=== PATIENT | male | born 1940 | race Caucasian/White ===

== ENCOUNTER 2018-03-20 12:50 | Inpatient (IN) ==
[2018-03-20] MEDS ORDERED: Acetaminophen 325 MG Tablet PO ONE (14:06)
--- NOTE | 2018-03-20 14:24 | ED ---
HPI General Chief complaint: Abdominal Pain Stated complaint: Chills/Left flank pain/Nausea Time Seen by Provider: 03/20/18 14:00 Source: patient Mode of arrival: ambulatory Limitations: no limitations History of Present Illness HPI narrative: 77yo M with PMH of HTN, DM, GERD presents to the ED with c/o chills, nausea, vomiting and left sided flank pain today. Denies any chest pain , sob, urinary complaints, diarrhea, focal weakness or numbness. Related Data Home Medications Medication Instructions Recorded Confirmed aspirin 81 mg PO DAILY 03/20/18 03/20/18 esomeprazole magnesium [Nexium] 40 mg PO DAILY 03/20/18 03/20/18 fluticasone-salmeterol [Advair 1 mcg INHALATION BID 03/20/18 03/20/18 Diskus] metformin 500 mg PO BID 03/20/18 03/20/18 montelukast 10 mg PO QPM 03/20/18 03/20/18 omega 1-gkn-zpa-fish oil [Fish Oil] 03/20/18 pantoprazole 40 mg PO DAILY 03/20/18 03/20/18 telmisartan 03/20/18 Previous Rx's Medication Instructions Recorded moxifloxacin 400 mg PO Q24H #5 tab 03/21/18 prednisone 20 mg PO BID #10 tab 03/21/18 Allergies Allergy/AdvReac Type Severity Reaction Status Date / Time Fish Containing Products Allergy Intermediate Hives Verified 03/20/18 13:18 metoclopramide Allergy Intermediate MADE PT Verified 03/20/18 13:18 NERVOUS ibuprofen Allergy Mild Nausea/Vomi Verified 03/20/18 13:18 ting Review of Systems ROS: all other systems reviewed are negative [facility] Social History Social History Substance History: No History of Abuse Second Hand Smoke Exposure: No Smoking Status: Never smoker How Often Do You Have a Drink Containing Alcohol: Never Recent Travel in [place] within the Last 8 Weeks: No Recent Out of Country Travel within the Last 8 Weeks: No Immunization History Tetanus Immunization: <5 Years Tetanus Immunization Year if Known: 2018 Exam Narrative Exam Narrative: GENERAL: 77yo M in mild distress. SKIN: Focused skin assessment warm/dry. HEAD: Atraumatic. Normocephalic. EYES: Pupils equal and round. No scleral icterus. No injection or drainage. ENT: No nasal bleeding or discharge. Mucous membranes pink and moist. NECK: Trachea midline. No JVD. CARDIOVASCULAR: Regular rate and rhythm. No murmur appreciated. RESPIRATORY: + accessory muscle use. O2 sat mid 80s. GASTROINTESTINAL: Abdomen soft, non-tender, nondistended. No rebound tenderness or guarding. MUSCULOSKELETAL: No obvious deformities. No clubbing. No cyanosis. No edema. NEUROLOGICAL: Awake and alert. No obvious cranial nerve deficits. Motor grossly within normal limits. Normal speech. PSYCHIATRIC: Appropriate mood and affect; insight and judgment normal. Course Initial Documented Vital Signs Temperature 102.3 F H 03/20/18 13:13 Pulse Rate 80 03/20/18 13:13 Respiratory Rate 16 03/20/18 13:13 Blood Pressure 146/75 H 03/20/18 13:13 Pulse Oximetry 99 03/20/18 13:13 Last Documented Vital Signs Temperature 97.2 F L 03/21/18 12:00 Pulse Rate 58 L 03/21/18 12:00 Respiratory Rate 19 03/21/18 12:00 Blood Pressure 108/64 03/21/18 12:00 Pulse Oximetry 93 L 03/21/18 12:00 Critical Care Time Critical Care Time: Yes Total Critical Care Time: 40 Attestation: Aggregate critical care time was 40 minutes. Time to perform other separately billable procedures was not included in the critical care time. My time did not include minutes spent treating any other patients simultaneously or on activities that did not directly contribute to the patient's treatment. The services I provided to this patient were to treat and/or prevent clinically significant deterioration that could result in: cardiovascular collapse or . I provided critical care services requiring my management, as noted below: Chart data review, documentation time, medication orders and management, vital sign assessments/reviewing monitor data, ordering and reviewing lab tests, ordering and interpreting/reviewing x-rays and diagnostic studies, care of the patient and discussion of the patient with the admitting physicians. Medical Decision Making MDM Narrative Medical decision making narrative: 77yo M with c/o chills, left side pain, nausea, and vomiting. Pt found to be febrile at 102.3F. Given acetaminophen. Abdominal exam is unremarkable but pt said it is intermittent. Labs reviewed, mild leukocytosis at 12.1. H/H normal. Lactic acid elevated at 2.5. BUN/ creatinine elevated at 24/1.50. No prior to compare to. UA showed large blood. RBC 51-189. CXR showed left basilar lung consolidation. Probable small left effusion. CT a/p showed focal consolidation left lung base. Multiple small nonobstructing right renal calculi. No obstructive urtopathy or hydronephrosis. Pt said he has GERD and was vomiting, so may have aspirated. Pt empirically given antibiotics. Discussed with Dr. Tripp and accepted to his service. Medical Screen Exam Complete: Yes Emergency Medical Condition: Yes Differential Diagnosis Differential Diagnosis: Sepsis secondary to abdominal source vs. UTI vs. pneumonia Lab Data Result diagrams: 03/20/18 14:20 03/20/18 14:20 Lab Results 03/20/18 03/20/18 03/20/18 Range/Units 14:20 14:20 14:20 CBC w Diff Auto diff final WBC 12.1 H (4.0-11.0) th/mm3 RBC 4.69 (4.50-5.90) mil/mm3 Hgb 14.0 (13.0-17.0) gm/dL Hct 42.9 (39.0-51.0) % MCV 91.5 (80.0-100.0) fL MCH 29.9 (27.0-34.0) pg MCHC 32.7 (32.0-36.0) % RDW 13.6 (11.6-17.2) % Plt Count 235 (150-450) th/mm3 MPV 7.4 (7.0-11.0) fL Neut % (Auto) 88.5 H (16.0-70.0) % Lymph % (Auto) 5.5 L (9.0-44.0) % [place] % (Auto) 5.3 (0.0-8.0) % Eos % (Auto) 0.5 (0.0-4.0) % Baso % (Auto) 0.2 (0.0-2.0) % Neut # (Auto) 10.7 H (1.8-7.7) th/mm3 Lymph # (Auto) 0.7 L (1.0-4.8) th/mm3 [place] # (Auto) 0.6 (0.0-0.9) th/mm3 Eos # (Auto) 0.1 (0.0-0.4) th/mm3 Baso # (Auto) 0.0 (0.0-0.2) th/mm3 WBC Differential . Differential Comment . PT 9.7 L (9.8-11.6) sec INR 1.0 Ratio APTT 28.5 (23.4-31.7) sec Sodium 141 (136-145) meq/L Potassium 4.4 (3.5-5.1) meq/L Chloride 106 (98-107) meq/L Carbon Dioxide 26.5 (21.0-32.0) meq/L Anion Gap 9 (5-15) meq/L BUN 24 H (7-18) mg/dL Creatinine 1.50 H (0.60-1.30) mg/dL Estimated GFR 46 L (>89) mL/min POC Glucose (68-110) mg/dl Random Glucose 144 H (74-106) mg/dL Lactic Acid (0.4-2.0) mmol/L Calcium 9.2 (8.5-10.1) mg/dL Urine Color (Yellw/Straw) Urine Clarity (Clear) Urine pH (5.0-8.5) Ur Specific [place] (1.002-1.035) Urine Protein (Neg-Trace) mg/dL Urine Glucose (UA) (Negative) mg/dL Urine Ketones (Negative) mg/dL Urine Occult Blood (Negative) Urine Nitrate (Negative) Urine Bilirubin (Negative) Urine Urobilinogen (Less than 2) mg/dL Ur Leukocyte Esterase (Negative) Urine RBC (0-3) /hpf Urine WBC (0-5) /hpf Micro UA Comment Ur Microscopic Review Urine Culture Comments 03/20/18 03/20/18 03/20/18 Range/Units 14:20 14:25 17:53 CBC w Diff WBC (4.0-11.0) th/mm3 RBC (4.50-5.90) mil/mm3 Hgb (13.0-17.0) gm/dL Hct (39.0-51.0) % MCV (80.0-100.0) fL MCH (27.0-34.0) pg MCHC (32.0-36.0) % RDW (11.6-17.2) % Plt Count (150-450) th/mm3 MPV (7.0-11.0) fL Neut % (Auto) (16.0-70.0) % Lymph % (Auto) (9.0-44.0) % [place] % (Auto) (0.0-8.0) % Eos % (Auto) (0.0-4.0) % Baso % (Auto) (0.0-2.0) % Neut # (Auto) (1.8-7.7) th/mm3 Lymph # (Auto) (1.0-4.8) th/mm3 [place] # (Auto) (0.0-0.9) th/mm3 Eos # (Auto) (0.0-0.4) th/mm3 Baso # (Auto) (0.0-0.2) th/mm3 WBC Differential Differential Comment PT (9.8-11.6) sec INR Ratio APTT (23.4-31.7) sec Sodium (136-145) meq/L Potassium (3.5-5.1) meq/L Chloride (98-107) meq/L Carbon Dioxide (21.0-32.0) meq/L Anion Gap (5-15) meq/L BUN (7-18) mg/dL Creatinine (0.60-1.30) mg/dL Estimated GFR (>89) mL/min POC Glucose (68-110) mg/dl Random Glucose (74-106) mg/dL Lactic Acid 2.5 H 1.2 (0.4-2.0) mmol/L Calcium (8.5-10.1) mg/dL Urine Color Yellow (Yellw/Straw) Urine Clarity Slightly cloudy (Clear) Urine pH 6.5 (5.0-8.5) Ur Specific [place] 1.010 (1.002-1.035) Urine Protein Negative (Neg-Trace) mg/dL Urine Glucose (UA) Negative (Negative) mg/dL Urine Ketones Negative (Negative) mg/dL Urine Occult Blood Large H (Negative) Urine Nitrate Negative (Negative) Urine Bilirubin Negative (Negative) Urine Urobilinogen 0.2 (Less than 2) mg/dL Ur Leukocyte Esterase Trace H (Negative) Urine RBC 51-189 H (0-3) /hpf Urine WBC 0-5 (0-5) /hpf Micro UA Comment Culture not ind Ur Microscopic Review Microscopic reviewed Urine Culture Comments Culture not ind 11/12/18 11/12/18 Range/Units 07:14 11:25 CBC w Diff WBC (4.0-11.0) th/mm3 RBC (4.50-5.90) mil/mm3 Hgb (13.0-17.0) gm/dL Hct (39.0-51.0) % MCV (80.0-100.0) fL MCH (27.0-34.0) pg MCHC (32.0-36.0) % RDW (11.6-17.2) % Plt Count (150-450) th/mm3 MPV (7.0-11.0) fL Neut % (Auto) (16.0-70.0) % Lymph % (Auto) (9.0-44.0) % [place] % (Auto) (0.0-8.0) % Eos % (Auto) (0.0-4.0) % Baso % (Auto) (0.0-2.0) % Neut # (Auto) (1.8-7.7) th/mm3 Lymph # (Auto) (1.0-4.8) th/mm3 [place] # (Auto) (0.0-0.9) th/mm3 Eos # (Auto) (0.0-0.4) th/mm3 Baso # (Auto) (0.0-0.2) th/mm3 WBC Differential Differential Comment PT (9.8-11.6) sec INR Ratio APTT (23.4-31.7) sec Sodium (136-145) meq/L Potassium (3.5-5.1) meq/L Chloride (98-107) meq/L Carbon Dioxide (21.0-32.0) meq/L Anion Gap (5-15) meq/L BUN (7-18) mg/dL Creatinine (0.60-1.30) mg/dL Estimated GFR (>89) mL/min POC Glucose 115 H 132 H (68-110) mg/dl Random Glucose (74-106) mg/dL Lactic Acid (0.4-2.0) mmol/L Calcium (8.5-10.1) mg/dL Urine Color (Yellw/Straw) Urine Clarity (Clear) Urine pH (5.0-8.5) Ur Specific [place] (1.002-1.035) Urine Protein (Neg-Trace) mg/dL Urine Glucose (UA) (Negative) mg/dL Urine Ketones (Negative) mg/dL Urine Occult Blood (Negative) Urine Nitrate (Negative) Urine Bilirubin (Negative) Urine Urobilinogen (Less than 2) mg/dL Ur Leukocyte Esterase (Negative) Urine RBC (0-3) /hpf Urine WBC (0-5) /hpf Micro UA Comment Ur Microscopic Review Urine Culture Comments Imaging Data Radiologist's impression: Chest X-Ray 03/20/18 14:06 CONCLUSION: Left basilar lung consolidation. Probable small left effusion. Abdomen/Pelvis CT 03/20/18 15:28 CONCLUSION: 1. Focal consolidation at the left lung base. Differential diagnosis includes aspiration and pneumonia. 2. Multiple small nonobstructing right renal calculi. Multiple simple and complex renal cysts bilaterally. No obstructive uropathy or hydronephrosis. 3. Mild constipation, especially on the right side. Discharge Plan Discharge Disposition Patient Disposition: 30 Still Patient Discharge Condition Condition: Good Discharge Order Discharge Orders: Discharge Order (Routine); Ordered 03/21/18 Ordered By: Vincent Tripp Discharge Details Anticipated Discharge Date: 03/21/18 Diagnosis: Pneumonia Physicians Team ED Provider: Jen Galo Primary Care Provider: Kenneth Little Attending Provider: Yaya Mancia Status ED Status: Left Department Discharge Information Discharge Date/Time: 03/20/18 18:08
[2018-03-20 14:37] LABS: Baso % (Auto) 0.2 % (0.0-2.0); Eos # (Auto) 0.1 th/mm3 (0.0-0.4); Eos % (Auto) 0.5 % (0.0-4.0); Hematocrit 42.9 % (39.0-51.0); Lymph # (Auto) 0.7 th/mm3 (1.0-4.8); Lymph % (Auto) 5.5 % (9.0-44.0); Mean Corpuscular HGB Conc 32.7 % (32.0-36.0); Mean Corpuscular Hemoglobin 29.9 pg (27.0-34.0); Mean Corpuscular Volume 91.5 fL (80.0-100.0); Mean Platelet Volume 7.4 fL (7.0-11.0); Mono # (Auto) 0.6 th/mm3 (0.0-0.9); Mono % (Auto) 5.3 % (0.0-8.0); Neut # (Auto) 10.7 th/mm3 (1.8-7.7); Neut % (Auto) 88.5 % (16.0-70.0); Platelet Count 235 th/mm3 (150-450); Red Blood Count 4.69 mil/mm3 (4.50-5.90); Red Cell Distribution Width 13.6 % (11.6-17.2); White Blood Count 12.1 th/mm3 (4.0-11.0)
[2018-03-20 14:40] LABS: Bilirubin,Urine Negative (Negative); Clarity,Urine Slightly Cloudy (Clear); Color,Urine Yellow (Yellw/Straw); Glucose,Urine (UA) Negative (Negative); Leukocyte Esterase,Urine Trace (Negative); Nitrite,Urine Negative (Negative); PH,Urine 6.5 (5.0-8.5); Urobilinogen,Urine 0.2 mg/dL (Less than 2)
[2018-03-20 14:46] LABS: RBC,Urine 51-189 /hpf (0-3); WBC,Urine 0-5 /hpf (0-5)
[2018-03-20 14:52] LABS: Activated Partial Thrombo Time 28.5 sec (23.4-31.7); Prothrombin Time 9.7 sec (9.8-11.6)
[2018-03-20 15:05] LABS: Potassium 4.4 meq/L (3.5-5.1)
[2018-03-20 15:09] LABS: Calcium 9.2 mg/dL (8.5-10.1)
[2018-03-20 15:10] LABS: Carbon Dioxide 26.5 meq/L (21.0-32.0)
[2018-03-20] MEDS ORDERED: Piperacil/Tazo 2.25 GM Premix 50 ML IV.SIG ONE (15:27)
[2018-03-20] MEDS ORDERED: Vancomycin Inj 1,000 MG in Sodium Chlor 0.9% Inj 250 ML IV.SIG ONE (15:27)
[2018-03-20] MEDS ORDERED: Sod Chloride 0.9% Inj 1,000 ML IV.SIG SCH ×2 (15:30→17:30)
--- NOTE | 2018-03-20 16:09 | CT ---
EXAM DATE: 03/20/2018 3:45 PM EST AGE/SEX: 77 years / Male INDICATIONS: Left flank pain with nausea and vomiting. CLINICAL DATA: This is the patient's initial encounter. Patient reports that signs and symptoms have been present for 1 day and indicates a pain score of 7/10. MEDICAL/SURGICAL HISTORY: Gastroesophageal reflux disease. Carcinoma, prostatic. Diabetes. H ypertension. Inguinal hernia repair. Cholecystectomy. RADIATION DOSE: 20.82 CTDI (mGy) COMPARISON: No prior exams available for comparison. TECHNIQUE: Multiple contiguous axial images were obtained through the abdomen. Images were obtained using multiple row detector helical technique. Using automated exposure control and adjustment of the mA and/or kV according to patient size, radiation dose was kept as low as reasonably achievable to o btain optimal diagnostic quality images. DICOM format image data is available electronically for rev iew and comparison. FINDINGS: There is focal consolidation at the left lung base. Differential diagnosis includes aspiration and pn eumonia. No significant right basilar consolidation. Moderate coronary calcifications. There is a small hiatal hernia. No acute findings in the liver, spleen, adrenals or pancreas. There are numerous bilateral renal cysts. On the right side there are several 1 to 3 mm calculi in th e upper pole. There is no hydronephrosis or obstructive uropathy. Ureters have normal caliber. No sergio dder calculi identified. One of the cysts on the left side hemorrhagic the upper pole. No acute bony abnormality. Mild scoliosis. CONCLUSION: 1. Focal consolidation at the left lung base. Differential diagnosis includes aspiration and pneumon ia. 2. Multiple small nonobstructing right renal calculi. Multiple simple and complex renal cysts bilate rally. No obstructive uropathy or hydronephrosis. 3. Mild constipation, especially on the right side. Electronically signed by: Keo Winn MD 03/20/2018 4:08 PM EST
--- NOTE | 2018-03-20 16:11 | XR ---
EXAM DATE: 03/20/2018 4:01 PM EST AGE/SEX: 77 years / Male INDICATIONS: Fever, cough, today CLINICAL DATA: This is the patient's initial encounter. Patient reports that signs and symptoms have been present for 1 day and indicates a pain score of 0/10. MEDICAL/SURGICAL HISTORY: Hypertension. Diabetes mellitus type II. None. COMPARISON: [facility], CHEST SINGLE AP, 08/14/2010. . FINDINGS: Left basilar consolidation. Differential diagnosis includes pneumonia in patient with fever. Small le ft effusion. Minimal right basilar atelectasis. Moderate dextroscoliosis. No pneumothorax. CONCLUSION: Left basilar lung consolidation. Probable small left effusion. Electronically signed by: Keo Winn MD 03/20/2018 4:10 PM EST
[2018-03-20] MEDS ORDERED: Bisacodyl 10 MG Supp RECTAL PRN (17:19)
[2018-03-20] MEDS ORDERED: Acetaminophen 325 MG Tablet PO PRN (17:19)
--- NOTE | 2018-03-20 17:19 | P.HP ---
History of Present Illness Service: Hospitalist Primary Care Physician: Kenneth Little MD Chief Complaint: Cough, shortness of breath History of Present Illness: Mr. Sheffield is a 77-year-old pleasant male with a history of asthma , prostate cancer, GERD, hypertension, diabetes mellitus who presents to the emergency department on 03/20/2018 due to cough, left-sided flank pain, chills that started 1-2 hours prior to arrival to the emergency department. He reports that due to his acid reflux problem, he admits to possibility of aspiration. Upon arrival he was found to be hypoxic. Chest x-ray reveals left lower lobe pneumonia. He was also found to have 102.3 F temperature in the ED. Patient denies any chest pain, abdominal pain. Denies any changes in bowel or bladder habits. Past medical history: Asthma, prostate cancer, GERD, hypertension, diabetes mellitus type 2 Past surgical history: Cholecystectomy, tonsillectomy, hernia repair Social history: Patient denies using tobacco or illicit drugs or alcohol. Family history: Mother had cancer. Father had kidney disease. Review of Systems All other systems reviewed negative except as stated in HPI PMFSH - History History Provided By: Patient - Medical History Medical History: Medical History (Last Reviewed 03/21/18 @ 07:58 by Vincent Tripp DO) Asthma GERD (gastroesophageal reflux disease) HTN (hypertension) High cholesterol Prostate cancer T2DM (type 2 diabetes mellitus) - Surgical History Surgical History: Surgical History (Last Reviewed 03/21/18 @ 07:59 by Vincent Tripp DO) H/O inguinal hernia repair History of cholecystectomy History of tonsillectomy - Tobacco History Smoking Status: Never smoker - Alcohol History How Often Do You Have a Drink Containing Alcohol: Never - Substance Use History Substance History: No History of Abuse - Travel History Recent Travel in the [place] Within the Last 8 Weeks: No Recent Travel Out of the Country Within the Last 8 Weeks: No - Immunization History Tetanus Immunization: <5 Years Tetanus Immunization Year if Known: 2017 Medications and Allergies Active Medications: Active Medications Sodium Chloride (Ns Inj) 1,000 mls @ 1,000 mls/hr IV.SIG BOLUS JOE Stop: 03/20/18 18:29 Allergies Allergy/AdvReac Type Severity Reaction Status Date / Time Fish Containing Products Allergy Intermediate Hives Verified 03/20/18 13:18 metoclopramide Allergy Intermediate MADE PT Verified 03/20/18 13:18 NERVOUS ibuprofen Allergy Mild Nausea/Vomi Verified 03/20/18 13:18 ting Home Medications Medication Instructions Recorded Confirmed Type aspirin 81 mg PO DAILY 03/20/18 03/20/18 History esomeprazole magnesium [Nexium] 40 mg PO DAILY 03/20/18 03/20/18 History fluticasone-salmeterol [Advair 1 mcg INHALATION BID 03/20/18 03/20/18 History Diskus] metformin 500 mg PO BID 03/20/18 03/20/18 History montelukast 10 mg PO QPM 03/20/18 03/20/18 History omega 3-zzm-uzf-fish oil [Fish Oil] 03/20/18 History pantoprazole 40 mg PO DAILY 03/20/18 03/20/18 History telmisartan 03/20/18 History Exam Vital signs: Vital Signs 03/20/18 13:13 03/20/18 15:19 03/20/18 15:25 Temperature 102.3 F H 100.2 F H Pulse Rate 80 95 H Respiratory Rate 16 18 Blood Pressure 146/75 H 104/61 Pulse Oximetry 99 95 03/20/18 16:05 03/20/18 17:17 Temperature Pulse Rate 88 85 Respiratory Rate 16 16 Blood Pressure 98/62 L 99/63 L Pulse Oximetry 95 95 Intake & Output 03/19/18 03/20/18 03/20/18 18:59 06:59 18:59 Intake Total 1250 / 1250 Balance 1250 / 1250 Weight 86.5 kg Intake: IV 1250 / 1250 NS Inj 1,000 ML @ 1000 mls/hr 1000 / 1000 IV.SIG BOLUS JOE Rx#:[id number] Vancomycin Inj 1,000 MG In NS 250 / 250 Inj 250 ML @ 250 mls/hr IV.SIG ONCE ONE Rx#:[id number] Narrative: GENERAL: This is a well-nourished, well-developed patient, in no apparent distress. SKIN: No rashes, ecchymoses or lesions. Warm and dry. HEAD: Atraumatic. Normocephalic. No temporal or scalp tenderness. EYES: Pupils equal round and reactive. No injection or drainage. ENT: Nose without bleeding, purulent drainage or septal hematoma. Airway patent. NECK: Trachea midline. No lymphadenopathy. Supple, nontender, no meningeal signs. CARDIOVASCULAR: Regular rate and rhythm without murmurs, gallops, or rubs. No JVD. RESPIRATORY: Moderate air entry, mild rales in the posterior lung escalera. GASTROINTESTINAL: Abdomen soft, non-tender, nondistended. No guarding. MUSCULOSKELETAL: Extremities without clubbing, cyanosis, or edema. NEUROLOGICAL: Awake and alert. Cranial nerves II through XII intact. No focal neurological deficits. Normal speech. Results - Labs CBC & Chem 7: 03/20/18 14:20 03/20/18 14:20 Labs: Laboratory Results - last 24 hr 03/20/18 03/20/18 03/20/18 14:20 14:20 14:20 CBC w Diff Auto diff final WBC 12.1 H RBC 4.69 Hgb 14.0 Hct 42.9 MCV 91.5 MCH 29.9 MCHC 32.7 RDW 13.6 Plt Count 235 MPV 7.4 Neut % (Auto) 88.5 H Lymph % (Auto) 5.5 L [place] % (Auto) 5.3 Eos % (Auto) 0.5 Baso % (Auto) 0.2 Neut # (Auto) 10.7 H Lymph # (Auto) 0.7 L [place] # (Auto) 0.6 Eos # (Auto) 0.1 Baso # (Auto) 0.0 WBC Differential . Differential Comment . PT 9.7 L INR 1.0 APTT 28.5 Sodium 141 Potassium 4.4 Chloride 106 Carbon Dioxide 26.5 Anion Gap 9 BUN 24 H Creatinine 1.50 H Estimated GFR 46 L Random Glucose 144 H Lactic Acid Calcium 9.2 Urine Color Urine Clarity Urine pH Ur Specific [place] Urine Protein Urine Glucose (UA) Urine Ketones Urine Occult Blood Urine Nitrate Urine Bilirubin Urine Urobilinogen Ur Leukocyte Esterase Urine RBC Urine WBC Micro UA Comment Ur Microscopic Review Urine Culture Comments 03/20/18 03/20/18 14:20 14:25 CBC w Diff WBC RBC Hgb Hct MCV MCH MCHC RDW Plt Count MPV Neut % (Auto) Lymph % (Auto) [place] % (Auto) Eos % (Auto) Baso % (Auto) Neut # (Auto) Lymph # (Auto) [place] # (Auto) Eos # (Auto) Baso # (Auto) WBC Differential Differential Comment PT INR APTT Sodium Potassium Chloride Carbon Dioxide Anion Gap BUN Creatinine Estimated GFR Random Glucose Lactic Acid 2.5 H Calcium Urine Color Yellow Urine Clarity Slightly cloudy Urine pH 6.5 Ur Specific [place] 1.010 Urine Protein Negative Urine Glucose (UA) Negative Urine Ketones Negative Urine Occult Blood Large H Urine Nitrate Negative Urine Bilirubin Negative Urine Urobilinogen 0.2 Ur Leukocyte Esterase Trace H Urine RBC 51-189 H Urine WBC 0-5 Micro UA Comment Culture not ind Ur Microscopic Review Microscopic reviewed Urine Culture Comments Culture not ind - Imaging Impressions Chest X-Ray 03/20/18 14:06 CONCLUSION: Left basilar lung consolidation. Probable small left effusion. Abdomen/Pelvis CT 03/20/18 15:28 CONCLUSION: 1. Focal consolidation at the left lung base. Differential diagnosis includes aspiration and pneumonia. 2. Multiple small nonobstructing right renal calculi. Multiple simple and complex renal cysts bilaterally. No obstructive uropathy or hydronephrosis. 3. Mild constipation, especially on the right side. Caprini VTE Risk Assessment Caprini VTE Risk Assessment: No/Low Risk (score <= 1) Caprini Risk Assessment Model: Point Value = 1 Point Value = 2 Point Value = 3 Point Value = 5 Age 41-60 Minor surgery BMI > 25 kg/m2 Swollen legs Varicose veins or History of unexplained or recurrent spontaneous Oral contraceptives or hormone replacement Sepsis (< 1 month) Serious lung disease, including pneumonia (< 1 month) Abnormal pulmonary function Acute myocardial infarction Congestive heart failure (< 1 month) History of inflammatory bowel disease Medical patient at bed rest Age 61-74 Arthroscopic surgery Major open surgery (> 45 min) Laparoscopic surgery (> 45 min) Malignancy Confined to bed (> 72 hours) Immobilizing plaster cast Central venous access Age >= 75 History of VTE Family history of VTE Factor V Leiden Prothrombin [id number] Lupus anticoagulant Anticardiolipin antibodies Elevated serum homocysteine Heparin-induced thrombocytopenia Other congenital or acquired thrombophilia Stroke (< 1 month) Elective arthroplasty Hip, pelvis, or leg fracture Acute spinal cord injury (< 1 month) Prophylaxis Regimen: Total Risk Factor Score Risk Level Prophylaxis Regimen 0-1 Low Early ambulation 2 Moderate Order ONE of the following: *Sequential Compression Device (SCD) *Heparin 5000 units SQ BID 3-4 Higher Order ONE of the following medications: *Heparin 5000 units SQ TID *Enoxaparin/Lovenox 40 mg SQ daily (WT < 150 kg, CrCl > 30 mL/min) *Enoxaparin/Lovenox 30 mg SQ daily (WT < 150 kg, CrCl > 10-29 mL/min) *Enoxaparin/Lovenox 30 mg SQ BID (WT < 150 kg, CrCl > 30 mL/min) AND/OR *Sequential Compression Device (SCD) 5 or more Highest Order ONE of the following medications: *Heparin 5000 units SQ TID (Preferred with Epidurals) *Enoxaparin/Lovenox 40 mg SQ daily (WT < 150 kg, CrCl > 30 mL/min) *Enoxaparin/Lovenox 30 mg SQ daily (WT < 150 kg, CrCl > 10-29 mL/min) *Enoxaparin/Lovenox 30 mg SQ BID (WT < 150 kg, CrCl > 30 mL/min) AND *Sequential Compression Device (SCD) Assessment and Plan - Plan Mr. Sheffield is a pleasant 77-year-old male with a history of asthma , GERD, prostate cancer who presents to the emergency department due to 1 2- hour duration of chills, cough and shortness of breath. Patient was found to be hypoxic and had a temperature of 102 F the ED. Left lower lobe pneumonia Possibly community-acquired versus aspiration pneumonia We will start patient on moxifloxacin 400 mg every 24 hours which will cover for both community-acquired pneumonia as well as aspiration pneumonia Continue DuoNeb every 4 hours as needed. Continue supplemental oxygen as needed to keep O2 saturation above 90%. Diabetes mellitus Patient takes metformin at home. We will continue sliding scale insulin here. If needed, consider Levemir. Plan Hypertension Currently normotensive. If needed we will continue home medication. Full code. Lovenox.
[2018-03-20] MEDS ORDERED: Dextrose 50% in Water 50 ML Vial IV.PUSH PRN (23:56)
[2018-03-21] MEDS ORDERED: Benzonatate 100 MG Capsule PO PRN (00:07)
[2018-03-21] MEDS: Insulin NovoLOG Aspart Correctional Sugar Inj SQ SCH ×2 (07:29→11:39)
[2018-03-21] MEDS ORDERED: Enoxaparin Inj 40 MG/0.4 ML Syringe SQ SCH (09:00)
[2018-03-21 09:21] VITALS: RESP 19
[2018-03-21 12:21] VITALS: BP 108/64; PULSE 58; TEMP 97.2; O2SAT 93
--- NOTE | 2018-03-21 13:24 | P.PN ---
Subjective Interval history: Follow-up for left-sided aspiration/community-acquired pneumonia. Patient is currently doing well. He reports significant improvement. Denies any chest pain, shortness of breath, fever or chills. On 2 L he is saturating around 96- 97%. We discontinued nasal cannula and he continued to do well on room air. Physical Exam Vital signs: Vital Signs 03/20/18 15:19 03/20/18 15:25 03/20/18 16:05 Temperature 100.2 F H Pulse Rate 95 H 88 Respiratory Rate 18 16 Blood Pressure 104/61 98/62 L Pulse Oximetry 95 95 03/20/18 17:17 03/20/18 17:39 03/20/18 18:20 Temperature 96.5 F L Pulse Rate 85 80 76 Respiratory Rate 16 16 20 Blood Pressure 99/63 L 102/64 113/74 Pulse Oximetry 95 97 03/20/18 20:00 03/20/18 21:05 03/21/18 00:00 Temperature 98.4 F 96.5 F L Pulse Rate 59 L 67 57 L Respiratory Rate 18 18 18 Blood Pressure 101/60 105/51 L Pulse Oximetry 94 L 94 L 94 L 03/21/18 07:42 03/21/18 08:00 03/21/18 12:00 Temperature 97.5 F L 97.2 F L Pulse Rate 59 L 71 58 L Respiratory Rate 16 19 19 Blood Pressure 124/75 108/64 Pulse Oximetry 96 97 93 L Intake & Output 03/20/18 03/21/18 03/21/18 18:59 06:59 18:59 Intake Total 2300 / 2300 340 / 340 Output Total 900 / 900 250 / 250 Balance 2300 / 2300 -560 / -560 -250 / -250 Weight 86.5 kg 88.3 kg Intake: IV 2300 / 2300 250 / 250 Avelox 400 mg Premix 250 ML @ 250 / 250 250 mls/hr IV.SIG Q24H JOE Rx#: [id number] Zosyn 2.25 GM Premix 50 ML @ 50 / 50 100 mls/hr IV.SIG ONCE ONE Rx#: [id number] NS Inj 1,000 ML @ 1000 mls/hr 1999 / 1999 IV.SIG BOLUS JOE Rx#:[id number] Vancomycin Inj 1,000 MG In NS 250 / 250 Inj 250 ML @ 250 mls/hr IV.SIG ONCE ONE Rx#:[id number] Oral 90 / 90 Output: Urine 900 / 900 250 / 250 Other: # Urine Diapers 220 Date of Last Bowel Movement 03/19/18 03/20/18 Narrative: GENERAL: Alert, oriented x3, NAD. SKIN: Warm and dry. HEAD: Normocephalic. EYES: No scleral icterus. No injection or drainage. NECK: Supple, trachea midline. No JVD or lymphadenopathy. CARDIOVASCULAR: Regular rate and rhythm without murmurs, gallops, or rubs. RESPIRATORY: Moderate air entry. No accessory muscle use. Mild wheezing noted in the posterior lung escalera. GASTROINTESTINAL: Abdomen soft, non-tender, nondistended. MUSCULOSKELETAL: No cyanosis, or edema. BACK: Nontender without obvious deformity. No CVA tenderness. Results - Labs CBC & Chem 7: 03/20/18 14:20 03/20/18 14:20 Laboratory Results - last 24 hr 03/20/18 03/20/18 03/20/18 14:20 14:20 14:20 CBC w Diff Auto diff final WBC 12.1 H RBC 4.69 Hgb 14.0 Hct 42.9 MCV 91.5 MCH 29.9 MCHC 32.7 RDW 13.6 Plt Count 235 MPV 7.4 Neut % (Auto) 88.5 H Lymph % (Auto) 5.5 L [place] % (Auto) 5.3 Eos % (Auto) 0.5 Baso % (Auto) 0.2 Neut # (Auto) 10.7 H Lymph # (Auto) 0.7 L [place] # (Auto) 0.6 Eos # (Auto) 0.1 Baso # (Auto) 0.0 WBC Differential . Differential Comment . PT 9.7 L INR 1.0 APTT 28.5 Sodium 141 Potassium 4.4 Chloride 106 Carbon Dioxide 26.5 Anion Gap 9 BUN 24 H Creatinine 1.50 H Estimated GFR 46 L POC Glucose Random Glucose 144 H Lactic Acid Calcium 9.2 Urine Color Urine Clarity Urine pH Ur Specific [place] Urine Protein Urine Glucose (UA) Urine Ketones Urine Occult Blood Urine Nitrate Urine Bilirubin Urine Urobilinogen Ur Leukocyte Esterase Urine RBC Urine WBC Micro UA Comment Ur Microscopic Review Urine Culture Comments 03/20/18 03/20/18 03/20/18 14:20 14:25 17:53 CBC w Diff WBC RBC Hgb Hct MCV MCH MCHC RDW Plt Count MPV Neut % (Auto) Lymph % (Auto) [place] % (Auto) Eos % (Auto) Baso % (Auto) Neut # (Auto) Lymph # (Auto) [place] # (Auto) Eos # (Auto) Baso # (Auto) WBC Differential Differential Comment PT INR APTT Sodium Potassium Chloride Carbon Dioxide Anion Gap BUN Creatinine Estimated GFR POC Glucose Random Glucose Lactic Acid 2.5 H 1.2 Calcium Urine Color Yellow Urine Clarity Slightly cloudy Urine pH 6.5 Ur Specific [place] 1.010 Urine Protein Negative Urine Glucose (UA) Negative Urine Ketones Negative Urine Occult Blood Large H Urine Nitrate Negative Urine Bilirubin Negative Urine Urobilinogen 0.2 Ur Leukocyte Esterase Trace H Urine RBC 51-189 H Urine WBC 0-5 Micro UA Comment Culture not ind Ur Microscopic Review Microscopic reviewed Urine Culture Comments Culture not ind 03/21/18 03/21/18 07:14 11:25 CBC w Diff WBC RBC Hgb Hct MCV MCH MCHC RDW Plt Count MPV Neut % (Auto) Lymph % (Auto) [place] % (Auto) Eos % (Auto) Baso % (Auto) Neut # (Auto) Lymph # (Auto) [place] # (Auto) Eos # (Auto) Baso # (Auto) WBC Differential Differential Comment PT INR APTT Sodium Potassium Chloride Carbon Dioxide Anion Gap BUN Creatinine Estimated GFR POC Glucose 115 H 132 H Random Glucose Lactic Acid Calcium Urine Color Urine Clarity Urine pH Ur Specific [place] Urine Protein Urine Glucose (UA) Urine Ketones Urine Occult Blood Urine Nitrate Urine Bilirubin Urine Urobilinogen Ur Leukocyte Esterase Urine RBC Urine WBC Micro UA Comment Ur Microscopic Review Urine Culture Comments Microbiology 03/20/18 14:20 Blood - Peripheral Aerobic Blood Culture - Preliminary No growth in 1 day 03/20/18 14:20 Blood - Peripheral Anaerobic Blood Culture - Preliminary No growth in 1 day 03/20/18 14:25 Blood - Peripheral Aerobic Blood Culture - Preliminary No growth in 1 day 03/20/18 14:25 Blood - Peripheral Anaerobic Blood Culture - Preliminary No growth in 1 day 03/20/18 15:25 Nasal Wash Influenza Types A,B Antigen - Final Negative for FLU A and B antigen Infection due to influenza A or B cannot be ruled out since the antigen present in the sample may be below the detection limit of the test. - Imaging Impressions Chest X-Ray 03/20/18 14:06 CONCLUSION: Left basilar lung consolidation. Probable small left effusion. Abdomen/Pelvis CT 03/20/18 15:28 CONCLUSION: 1. Focal consolidation at the left lung base. Differential diagnosis includes aspiration and pneumonia. 2. Multiple small nonobstructing right renal calculi. Multiple simple and complex renal cysts bilaterally. No obstructive uropathy or hydronephrosis. 3. Mild constipation, especially on the right side. - Procedures None Assessment and Plan - Plan Mr. Sheffield is a pleasant 77-year-old male with a history of asthma , GERD, prostate cancer who presents to the emergency department due to 1 2- hour duration of chills, cough and shortness of breath. Patient was found to be hypoxic and had a temperature of 102 F the ED. Left lower lobe pneumonia Possibly community-acquired versus aspiration pneumonia We will continue patient on moxifloxacin 400 mg every 24 hours which will cover for both community-acquired pneumonia as well as aspiration pneumonia Continue DuoNeb every 4 hours as needed. Patient is doing well on room air. Repeat chest x-ray in 4 weeks in the outpatient setting. Diabetes mellitus Patient takes metformin at home. We will continue sliding scale insulin here. If needed, consider Levemir. Plan Hypertension Currently normotensive. If needed we will continue home medication. Full code. Lovenox. Discharge patient to home Condition on discharge: Improved Diabetic diet as tolerated Ad Maryann activity Rx written: Moxifloxacin 400 mg daily for 5 days Prednisone 20 mg twice daily for 5 days. Follow-up with primary care physician within 1-2 weeks.
== END 2018-03-21 14:41 | disposition home or self-care (01) ==
LOC: PHED 12:50 → PHEDH 17:28 → PHEDA 17:40 → PH3 18:09
PROVIDERS: ADMIT Hospitalist; ATTEND Hospitalist